=== PATIENT | female | born 1940 | race Caucasian/White ===

== ENCOUNTER → 2019-08-03 14:41 | Outpatient (CLI) | payer MEDICARE ==
[2019-08-03 15:10] LABS: BASOPHILS 1.8 % (0-2); EOSINOPHILS 5.1 % (0-7); HEMATOCRIT 40.6 % (36.0-48.0); LYMPHOCYTES 20.8 % (15-50); MCH 30.4 pg (26.0-34.0); MCV 95.1 fL (80.0-100.0); MONOCYTES 9.2 % (2-11); NEUTROPHILS 63.1 % (40-80); PLATELET COUNT 233 10x3/uL (130-400); RBC 4.27 10x6/uL (4.00-5.40); RDW 12.7 % (11.5-14.5); WBC 4.3 10x3/uL (4.8-10.8)
[2019-08-03 15:36] LABS: % SATURATION 50 % (15-55); IRON 122 ug/dl (35-150); TOTAL IRON BIND CAPACITY 242 ug/dl (260-445); UNSAT IRON BIND CAPACITY 120 ug/dl (150-375)
[2019-08-03 15:53] LABS: ALBUMIN 3.9 g/dL (3.4-5.0); ANION GAP 12.5 mmol/L (8-16); BILIRUBIN - TOTAL 0.41 mg/dL (0.2-1.3); CALCIUM 8.9 mg/dL (8.5-10.1); CARBON DIOXIDE 28.7 mmol/L (21.0-32.0); POTASSIUM - SERUM 4.2 mmol/L (3.5-5.1); PROTEIN - SERUM 7.3 g/dL (6.4-8.2)
[2019-08-04 08:09] LABS: CA 27-29 30.9 U/mL (0.0-38.6); CEA 2.7 ng/mL (0.0-4.7)
== END | disposition home or self-care (01) ==
LOC: D.LABREF 14:41
PROVIDERS: ATTEND Internal Medicine Medical Oncology
DX: C50.412 Malignant neoplasm of upper-outer quadrant of left female breast (principal)